=== PATIENT | female | born 2000 | race Caucasian/White ===

== ENCOUNTER 2018-04-27 10:45 | Outpatient (RCR) | payer OTHER ==
[~2018-04-27 10:45] MED LIST: CONCERTA27 MG PO; FLONASE0.05 MG/AC NS; LEXAPRO20 MG PO; OCELLA 3 MG-0.01 TAB PO
== END 2018-05-04 15:52 | disposition home or self-care (01) ==
LOC: WSC 10:45
DX: S43.022 Posterior subluxation of left humerus (principal); M25.312 Other instability, left shoulder

== ENCOUNTER 2018-08-16 16:00 | Outpatient (RCR) | payer OTHER | END 2018-08-26 | disposition home or self-care (01) | LOC: WSC | DX: S43.022 Posterior subluxation of left humerus (principal) ==

== ENCOUNTER 2020-06-04 12:45 | Outpatient (RCR) | payer OTHER | END 2020-07-22 | disposition still patient (30) | LOC: WSC | DX: S43.022 Posterior subluxation of left humerus (principal); M75.42 Impingement syndrome of left shoulder ==

== ENCOUNTER 2022-04-14 14:16 | Outpatient (CLI) | payer BC ==
[~2022-04-14] VITALS: Ht 167.6 cm; Wt 93.2 kg
--- NOTE | 2022-04-14 14:25 | NUR ---
Presents to L&D, ambulatory, with c/o of feeling wet spot on couch when she stood up. Denies any further leaking. Denies any intercourse in past 48 hours. Reports positive movement. Denies any vaginal bleeding. Denies wearing erick pad into hospital.
[2022-04-14 14:30] VITALS: BP 130/82; PULSE 126; TEMP 98.2
--- NOTE | 2022-04-14 14:35 | NUR ---
SVE closed/thick/high, amnitrace negative. Note tachycardia as well as maternal tachycardia. Patient afebrile, reports adequate oral hydration. Denies being outside.
[2022-04-14 15:30] VITALS: PULSE 101
--- NOTE | 2022-04-14 15:35 | NUR ---
Allowed off of EFM at this time to change into clothes for discharge to home. Denies any further leaking of fluid. Denies contractions.
--- NOTE | 2022-04-14 15:40 | NUR ---
Labor precautions given, instructed to keep next OB appointment, stay well hydrated, wear a erick pad if concerns for further leaking of fluid to monitor amount. Verbalizes understanding. Denies any questions or concerns.
== END 2022-04-14 15:50 | disposition home or self-care (01) ==
LOC: LDRO 14:16
DX: O42.92 Full-term premature rupture of membranes, unspecified as to length of time between rupture and onset of labor (principal); Z3A.38 38 weeks gestation of pregnancy
CPT/HCPCS: J7040

== ENCOUNTER 2022-04-23 03:21 | Inpatient (IN) | payer BC ==
[2022-04-23] VITALS (38 sets, daily range): BP systolic 90–135; BP diastolic 51–80; PULSE 67–101; TEMP 97–97.9
[~2022-04-23] VITALS: Ht 167.6 cm; Wt 96.8 kg
--- NOTE | 2022-04-23 03:30 | NUR ---
PT TO UNIT AMBULATORY WITH FOB WITH COMPLAINTS OF CONTRACTIONS THAT BEGAN AT 2300. PT ORIENTED TO ROOM, CHANGED INTO GOWN, EFM X2 APPLIED, VS OBTAINED, SVE PERFORMED.
--- NOTE | 2022-04-23 04:15 | NUR ---
PT REQUESTS EPIDURAL PLACMENT. WILL CALL ANESTHESIA.
[2022-04-23 04:35] LABS: BASO % 0.3 % (0.0-2.0); EOS # 0.1 K/mm3 (0.0-0.7); EOS % 0.9 % (0.0-4.0); GRAN # 6.9 K/mm3 (1.4-6.5); GRAN % 65.9 % (42.2-75.2); HEMOGLOBIN 10.8 g/dl (12.5-16.0); LYMPH # 2.5 K/mm3 (1.2-3.4); LYMPH % 23.8 % (20.0-51.0); MEAN CELL VOLUME 78 fl (80.0-100.0); MEAN CORPUSCULAR HEMOGLOBIN 25 pg (27-31); MEAN CORPUSCULAR HGB CONC 31 g/dl (33.0-37.0); MEAN PLATELET VOLUME 12.1 fl (7.4-10.4); MONO # 0.9 K/mm3 (0.1-0.6); MONO % 8.3 % (1.7-9.3); PLATELET COUNT 229 K/mm3 (130-400)
[2022-04-23 04:36] LABS: HEMATOCRIT 34.4 % (37.0-47.0)
--- NOTE | 2022-04-23 05:15 | NUR ---
0501- Trenton DILLON CRNA IN ROOM FOR EPIDURAL PLACEMENT. PT SITTING UP AT BEDSIDE FOR EPIDURAL PLACEMENT. 0506- SINGLE SHOT GIVEN BY Trenton DILLON CRNA. PT TOLERATED WELL. 0515- PT REPOSITIONED INTO HIGH FOWLERS.
--- NOTE | 2022-04-23 08:08 | NUR ---
0730 Dr. Roldan in patients room discussing plan of care. [address] Roldan /2. AROM. 0750 Dr. Roldan verbally orders pitocin to be started 0805 Dr. Roldan off unit.
--- NOTE | 2022-04-23 13:00 | NUR ---
1105 This RN begins coaching patient through pushing with contractions [id number] This RN at bedside monitoring patient and FHR. 1254 Spontaneous delivery of viable female infant. bulb suctioned and stimulated. Cord clamped by Dr. Roldan and cut by FOB. Infant to mother's abdomen. S. Tech takes over care of . 1259 Spontaneous delivery of placenta. Pitocin bolus started per protocol. Fundal massage done by Dr. Roldan. Firm/midline. Moderate amt of bleeding noted. 2nd degree perineal laceration repaired by Dr. Roldan. Fundal massage done by Dr. Roldan. Small amt of bleeding noted. Pt repositioned. Danica care done. Clean pad placed. Call light within reach.
--- NOTE | 2022-04-23 15:00 | NUR ---
Pt in wheelchair to 207. Epidural catheter removed. Pt cleaned up. Clean pad placed. Oriented to room. Call light within reach.
--- NOTE | 2022-04-23 16:45 | NUR ---
Pt up to bathroom. Voids 200cc. Clean underwear and pad placed. Pt tolerates well. Call light within reach.
[2022-04-24 00:40] VITALS: BP 109/64; PULSE 89; TEMP 97.4
[2022-04-24 04:27] VITALS: BP 119/66; PULSE 86; TEMP 98.4
[2022-04-24] MEDS ORDERED: IBU800 M1 PO (07:48)
[2022-04-24 09:10] VITALS: BP 123/76; PULSE 90; TEMP 97.9
--- NOTE | 2022-04-24 09:17 | NUR ---
Initial visit; Parents thanked Lead Mobile Developer for offering congratulations and God's blessings for the of their daughter. Lead Mobile Developer thanked family for choosing [facility].
== END 2022-04-24 15:45 | disposition home or self-care (01) | DRG 807 ==
LOC: LDRO 03:21 → OB 06:22 → LDR 06:22 → OB 15:00
PROVIDERS: Obstetrics & Gynecology; ADMIT Obstetrics & Gynecology
PROC: 10E0XZZ Delivery of Products of Conception, External Approach (ICD-10-PCS; principal; 2022-04-23)
PROC: 0KQM0ZZ Repair Perineum Muscle, Open Approach (ICD-10-PCS; 2022-04-23)
DX: O77.0 Labor and delivery complicated by meconium in amniotic fluid (principal); Z37.0 Single live birth; O70.1 Second degree perineal laceration during delivery; O71.82 Other specified trauma to perineum and vulva; O69.81X0 Labor and delivery complicated by cord around neck, without compression, not applicable or unspecified; Z3A.39 39 weeks gestation of pregnancy
CPT/HCPCS: J2405; J2590; J2795; J7120